=== PATIENT | male | born 1925 | race Caucasian/White ===

== ENCOUNTER 2016-10-03 00:18 | Emergency (ER) | payer MEDICARE ==
[2013-12-24 12:10] VITALS: BMI 19.0
[~2016-10-03 00:18] MED LIST: MOBIC7.5 MG PO; PAXIL10 MG; PAXIL10 MG PO
== END 2016-10-03 01:18 | disposition home or self-care (01) ==
LOC: D.ER 00:18
DX: H11.31 Conjunctival hemorrhage, right eye (principal); F03.90 Unspecified dementia, unspecified severity, without behavioral disturbance, psychotic disturbance, mood disturbance, and anxiety

== ENCOUNTER → 2017-02-09 11:18 | Outpatient (CLI) | payer MEDICARE ==
[2013-12-24 12:10] VITALS: BMI 19.0
== END | disposition home or self-care (01) ==
LOC: D.LAB 11:18
DX: Z12.5 Encounter for screening for malignant neoplasm of prostate (principal)

== ENCOUNTER → 2017-05-27 16:30 | Outpatient (CLI) | payer MEDICARE ==
[2013-12-24 12:10] VITALS: BMI 19.0
[~2017-05-27 16:30] MED LIST changes: +ACETAMINOPHEN500 M1 PO; +ASCORBIC ACID500 MG PO; +BAYER CHEWABLE81 MG PO; +BENADRYL25 MG PEG; +BROVANA15 MCG/2 M INH; +CALCIUM 600 +1 EAC3 PO; +DIFLUCAN100 MG PEG; +FERROUS SULFAT325 MG PO; +FLORANEX / LACT1 TAB PO; +GLUCOSAMINE & C1 CAP PO; +IPRAT-ALBUT 0.5-3 ML UPD; +KEPPRA250 MG PO; +LOPRESSOR I5 MG/5 ML IV; +LOVENOX40 MG/0.4 SC; +MIRALAX17 GM PO; +MULTI-DAY VITAM1 TAB PO; +NYSTATIN ORAL SU5 ML PO; +PEPCID20 MG PO; +PREDNISONE20 MG PEG; +PRILOSEC10 M1 PO; +PROSCAR5 MG PO; +PROTONIX FOR OR40 MG PO; +PROZAC10 MG PO; +PULMICORT0.5 MG/21 INH; +VITAMIN D31000 UNIT PO; +XOPENEX 0.0.63 MG/3 UPD; +ZOFRAN4 MG PO
== END | disposition home or self-care (01) ==
LOC: D.LABREF 16:30
DX: N39.0 Urinary tract infection, site not specified (principal)

== ENCOUNTER 2017-06-06 18:40 | Inpatient (IN) | payer MEDICARE ==
[~2017-06-06] VITALS: Ht 172.7 cm; Wt 58.2 kg
--- NOTE | ~2017-06-06 | HEMODYNAMI ---
PATIENT:SALINA BLAIR MEDICAL RECORD: [id number] : [birth year] [facility] D.[facility]3 ADMISSION DATE: 06/06/17 Generatedon:06/15/201711:19 Patient name: SALINA BLAIR Patient #: [id number] SSN: D OB: 1925 Date of study: 06/15/2017 Page: Of Hemodynamic Procedure Report Patient Data Patient Demographics Procedure consent was obtained First Name: SALINA Gender: Male Last Name: ROSSY : 1925 Middle Initial: F Age: 89 year(s) Patient #: [id number] Race: Unknown Additional ID: [id number] Contact details [address]: [address] [place] [address] rd State: [place] City: [place] Zip code: [address] Past Medical History Allergies Allergen Reaction Date Comments Reported Other allergy 06/15/2017 PCN, Sulfa Admission Admission Data Admission Date: 06/06/2017 Admission Time: 23:01 Admit Source: Other Room #: D.2303 Lab Results Lab Result Date: 06/15/2017 Lab Result Time: 4:05 Biochemistry Name Units Result Min Max BUN mg/dl 44 --(----)-* 7 18 Creatinine mg/dl 1.1 --(--*-)-- 0.6 1.3 CBC Name Units Result Min Max Hematocrit % 30.8 *-(----)-- 42 54 Hemoglobin g/dl 10.2 *-(----)-- 13.5 17.5 Procedure Procedure Types Cath Procedure Diagnostic Procedure Cardioversion External PADMAJA Procedure Description Procedure Date Procedure Date: 06/15/2017 Procedure Start Time: 10:40 Procedure End Time: 11:17 Procedure Staff Name Function Randolph Badillo MD Performing Physician Gera Nelson RT Monitor Fredis Gill RT Assembler Fluorescent Lights Vee Clay CRNA Additional personnel Francisco Lopez Giver Singh Stoner RN Nurse Procedure Data Cath Procedure Fluoroscopy Diagnostic fluoroscopy Total fluoroscopy Time: 0 time: 0 min min Diagnostic fluoroscopy Total fluoroscopy dose: 0 dose: 0 mGy mGy Contrast Material Contrast Material Type Amount (ml) Isovue 300 0 Estimated blood loss: 0 ml Procedure Complications No complications Procedure Medications Medication Administration Route Dosage Oxygen 13 l/min unlisted medication Refer to Anesthesia Notes for Sedation Medications Lopressor I.V. 5 mg Amiodarone Loading I.V. drip 150 mg Dose (150mg/100ml D5W) Amiodarone Loading I.V. drip 150 mg Dose (150mg/100ml D5W) Hemodynamics Rest HGB: 10.2 (g/dl) Heart Rate: 78 (bpm) Snapshots Pre Cath Intra NCS Post Cath Vital Signs Time Heart Resp SPO2 etCO2 NIBP (mmHg) Rhythm Pain Sedation Rate (ipm) (%) (mmHg) Status Level (bpm) 10:23:13 93 13 91 0 123/91(111) A-Fib 0 (11) 10(A) , No pain 10:27:21 121 14 93 0 121/88(98) A-Fib 0 (11) 10(A) , No pain 10:31:29 109 13 0 128/94(109) NSR 0 (11) 10(A) , No pain 10:35:41 112 11 95 0 134/85(100) NSR 0 (11) 10(A) , No pain 10:39:53 106 13 96 0 115/98(110) NSR 0 (11) 10(A) , No pain 10:44:52 108 17 84 0 Measuring NSR 0 (11) 10(A) , No pain 10:44:54 105 17 85 0 126/88(107) NSR 0 (11) 10(A) , No pain 10:49:14 90 16 91 0 106/68(85) NSR 0 (11) 10(A) , No pain 10:53:28 88 13 89 0 94/64(74) NSR 0 (11) 10(A) , No pain 10:57:38 88 16 88 0 91/63(76) NSR 0 (11) 10(A) , No pain 11:02:24 90 19 86 0 119/81(92) NSR 0 (11) 10(A) , No pain 11:06:34 92 13 89 0 115/79(96) NSR 0 (11) 10(A) , No pain 11:11:33 90 13 76 0 Measuring NSR 0 (11) 10(A) , No pain 11:11:35 94 13 83 0 122/75(92) NSR 0 (11) 10(A) , No pain 11:15:48 90 22 87 0 118/83(102) NSR 0 (11) 10(A) , No pain Medications Time Medication Route Dose Verified Delivered Reason Notes Effect iveness by by 10:27:58 Oxygen oxymizer 13 Randolph Randolph used for l/min Aby Badillo MD procedure MD 10:28:19 visc. po gargle Randolph Randolph Per lidocaine Aby Badillo MD physician MD 10:28:31 Refer to Randolph Randolph Anesthesia Aby Badillo MD Notes for MD Sedation Medications 10:50:47 Lopressor I.V. 5 mg Randolph Singh Per Aby Stoner RN physician 10:54:33 Amiodarone I.V. 150 mg Randolph Singh Per Loading Dose drip Aby Stoner RN physician (150mg/100ml D5W) 11:09:44 Amiodarone I.V. 150 mg Randolph Singh Per Loading Dose drip Aby Stoner RN physician (150mg/100ml D5W) Procedure Log Time Note 9:27:30 Informed consent obtained and on chart 9:27:33 Admit Source: Other 9:28:22 H&P Date Dictated: 06/14/2017 Within 30 days and on chart.. 9:29:02 Lab Result : BUN 44 mg/dl 9:29:02 Lab Result : Hemoglobin 10.2 g/dl 9:29:02 Lab Result : Creatinine 1.1 mg/dl 9:29:02 Lab Result : Hematocrit 30.8 % 10:00:10 Gera CANO(R) sent for patient. Start room use. 10:00:10 Time tracking: Regular hours 10:00:13 Plan of Care:Hemodynamics will remain stable., Cardiac rhythm will remain stable., Comfort level will be maintained., Respiratory function will remain adequate., Patient/ family verbilizes understanding of procedure., Procedure tolerated without complication., Recovers from procedure without complications.. 10:15:53 Patient arrived from ICU to CCL 3. Patient remains on bed/stretcher for procedure. 10:16:00 Warm blankets applied, and krystal hugger turned on for patient comfort. 10:16:01 Correct patient and procedure confirmed by team. 10:16:05 ECG and BP/O2 sat monitors applied to patient. 10:16:13 Quick Combo opened to sterile field. 10:16:17 Quick combo pads placed on patients chest and back. 10:21:54 Francisco Lopez Automotive Worker Foreman present for PADMAJA. 10:21:57 Vee Clay CRNA present and monitoring patient for TIVA. 10:22:09 Vital chart was started 10:22:12 Baseline sample Acquired. 10::25 Rhythm: atrial fibrillation 10::26 Full Disclosure recording started 10::28 Pre-procedure instructions explained to patient. 10::28 Pre-op teaching completed and patient verbalized understanding. 10:22:30 Family in patients room. 10:22:31 Patient NPO since Midnight. 10:23:05 Patient allergic to Other allergyPCN, Sulfa 10:23:09 Is the patient allergic to Iodine/contrast media? No. 10:27:58 Oxygen 13 l/min oxymizer was administered by Randolph Badillo MD; used for procedure; 10:28:19 visc. lidocaine gargle po was administered by Randolph Badillo MD; Per physician; 10:28:31 Refer to Anesthesia Notes for Sedation Medications was administered by Randolph Badillo MD; ; 10:30:33 Is patient on blood thinner?Yes 10:30:35 ACC The patient was administered the following blood thiners within the last 24 hours: ACCLovenox 10:30:38 Patient diabetic? No. 10:30:41 Previous problem with sedation/anesthesia? No ? 10:30:46 Snore? Unknown 10:30:47 Sleep apnea? No 10:30:49 Deviated septum? No 10:30:51 Opens mouth fully? Yes 10:30:52 Sticks out tongue? Yes 10:30:55 Airway obstruction? No ? 10:30:57 Dentures? No ? 10:31:57 IV patent on arrival in right forearm with 0.9% NaCl at [facility]. 10:31:59 Lab results completed and on chart. 10:32:29 Alarms reviewed by Tonay Nam 10:38:19 Physician arrived 10:38:19 --------ALL STOP TIME OUT------ 10:38:20 Final Timeout: patient, procedure, and site verified with staff and physician. All members of the team are in agreement. 10:38:25 Physical assessment completed. ASA score P 4 - A patient with severe systemic disease that is a constant threat to life as per Randolph Badillo MD. 10:38:29 Sedation plan: TIVA Medication:Propofol 10:40:36 Procedure started. 10:44:36 Un able to advance probe. PADMAJA was aborted. 10:45:57 Defibrillator synced and charged to 200 Joules. 10:46:12 Shock delivered. 10:50:02 Procedure ended.(Physican Out) 10:50:47 Lopressor 5 mg I.V. was administered by Singh Stoner RN; Per physician; 10:51:09 Patient cardioverted to sinus rhythm . 10:51:58 Fluoroscopy time 00.00 minutes. 10:52:00 Fluoroscopy dose: 0 mGy 10:52:00 Flurop Dose total: 0 10:52:02 Contrast amount:Isovue 300 0ml. 10:52:04 Sharps counted by scrub and verified by R.N. 10:52:14 Post-procedure physical assessment completed. ASA score P 4 - A patient with severe systemic disease that is a constant threat to life as per Randolph Badillo MD. 10:52:17 Post procedure rhythm: sinus rhythm 10:52:19 Estimated blood loss: 0 ml 10:52:28 Post procedure instruction explained to patient.Patient verbalizes understanding. 10:53:27 Procedure type changed to Cath procedure, Diagnostic procedure, Cardioversion External, PADMAJA 10:54:33 Amiodarone Loading Dose (150mg/100ml D5W) 150 mg I.V. drip was administered by Singh Stoner RN; Per physician; 10:54:37 Procedure and supply charges have been captured, reviewed, submitted and are correct. 10:54:39 Procedure Complication : No complications 11:09:44 Amiodarone Loading Dose (150mg/100ml D5W) 150 mg I.V. drip was administered by Singh Stoner RN; Per physician; 11:17:21 Vital chart was stopped 11:17:21 See physician's report for complete and final results. 11:17:23 Report given to ICU. 11:17:25 Patient transfered to ICU with Stretcher. 11:17:27 Procedure ended. 11:17:27 Full Disclosure recording stopped 11:17:33 End room use (Document Last) Device Usage Item Manufacture Quantity Catalog Hospital Part Current Minimal Lot# / Name Number Charge Number Stock Stock Qing peralta# Code [employer] 1 [id number] Combo Signature Audit [place] Stage Time Signature Unsigned Intra-Procedure 06/15/2017 Gera Nelson 11:18:58 AM RT(R) Signatures Monitor : Gera Nelson RT Signature : Date : Time : [address] [address]
--- NOTE | ~2017-06-06 | CN ---
PATIENT NAME:SALINA BLAIR MEDICAL RECORD: [id number] : [birth year] LOCATION:[facility].2303 ADMIT DATE: 06/06/17 ACCOUNT: [id number] CONSULTING PHYSICIAN: JENNY PEREZ MD REFERRING PHYSICIAN: ARTHUR SMALL MD DATE OF CONSULTATION: 06/07/2017 CONSULT REQUESTING PHYSICIAN: Arthur Small MD REASON FOR CONSULTATION: Hypotension, generalized weakness, and skin rash. HISTORY OF PRESENT ILLNESS: Mr. Blair is an 89-year-old gentleman who was admitted to the ER for hypotension, some shortness of breath, and skin rash. According to the patient, he was seen by urologist and possible UTI was diagnosed and the patient was started on Bactrim. The patient developed skin rash all over the body and it was getting worse. Also, when he came into the ER, the patient was hypotensive. Influenza flu test was negative. REVIEW OF SYSTEMS: As in history of present illness. PAST MEDICAL HISTORY: 1. Sick sinus syndrome, status post pacemaker placement. 2. Dementia. 3. Benign prostatic hypertrophy. 4. Iron deficiency anemia. 5. Irritable bowel syndrome. 6. History of lymphocytosis. 7. Gastroesophageal reflux disease. 8. Osteoarthritis. 9. Possible asthma. 10. History of compression fracture. PAST SURGICAL HISTORY: 1. He is status post pacemaker placement. 2. Hemorrhoidectomy. 3. DIRECTOR OF PLANNING shunt placement. 4. Cataract surgery and lens implant. 5. Bladder stone surgery. ALLERGIES: HE IS ALLERGIC TO PENICILLIN AND SULFA. MEDICATIONS: He is on Rocephin IV. His all other medication is reviewed. PERSONAL AND SOCIAL HISTORY: The patient is a nonsmoker, nondrinker. FAMILY HISTORY: Noncontributory. PHYSICAL EXAMINATION: GENERAL: Now, the patient is lying comfortably in bed. He is not in acute distress. VITAL SIGNS: The blood pressure is 108/59, pulse is 81, respiration is 18-25, temperature 98.1, and SPO2 is 93% on 2 liters nasal cannula. HEENT: Conjunctivae are pink. Sclerae not icteric. NECK: Supple, no JVD. CHEST: There is no wheeze, no rales. CONSULT REPORT [id number] SALINA BLAIR HEART: Rate and rhythm regular, normal sound. No murmur. ABDOMEN: Soft. Bowel sounds present. No hepatosplenomegaly. RECTAL: Deferred. EXTREMITIES: No cyanosis, no clubbing, no pedal edema. SKIN: Warm. There is red erythematous rash all over the body. LABORATORY DATA: CBC: The WBC is 19.6, hemoglobin 12, hematocrit is 35.2, the platelet count 129. Chemistry: Sodium 134, potassium 4.9, BUN is 53, creatinine 2.2, glucose 124. Urine is positive for trace protein and trace blood. IMPRESSION: 1. Systemic inflammatory response syndrome type of syndrome with hypotension and leukocytosis. 2. Hypotension. 3. Leukocytosis. 4. Skin rash secondary to drug reaction secondary to Bactrim. 5. Urinary tract infection. 6. Chronic kidney disease. RECOMMENDATION: 1. Continue Rocephin. 2. IV fluid resuscitation, the blood pressure is stable. He is off of the Levophed. Continue methylprednisolone IV. I will start him on Benadryl. Dr. Small, thank you for involving me in the care of Mr. Blair. TRANSINT:[id number] Voice Confirmation ID: [id number] DOCUMENT ID: [id number] JENNY PEREZ MD at 1410 CC: ARTHUR SMALL [id number] DICTATION DATE: 06/07/17 1233 CONTENT CHECKER: 06/07/17 1248 [place] [address]
--- NOTE | ~2017-06-06 | OP ---
PATIENT NAME: SALINA BLAIR MEDICAL RECORD: [id number] :[birth year] LOCATION:D.M2 D.2129 ADMISSION DATE:06/06/17 SURGEON: MYLES INMAN MD DATE OF OPERATION: 06/16/2017 PREOPERATIVE DIAGNOSES: 1. Aspiration pneumonia. 2. Failed swallowing evaluation. POSTOPERATIVE DIAGNOSES: 1. Aspiration pneumonia. 2. Failed swallowing evaluation. PROCEDURES: 1. Esophagogastroduodenoscopy with antral biopsies. 2. Percutaneous endoscopic gastrostomy tube placement, 20-Senegalese. SURGEON: Myles Inman MD ANTHROPOLOGY AND ARCHEOLOGY INSTRUCTOR: None. BLOOD LOSS: Minimal. ANESTHESIA: Please see the anesthesia sheet. COMPLICATIONS: None. The family insisted that the patient have this procedure performed in the operating room. OPERATIVE COURSE: The patient was conveyed to the operating room electively on 06/16/2017. Anesthesia was induced by the anesthesia staff. The abdomen was sterilely prepped and draped. A bite block was inserted. A gastroscope was inserted into the mouth. It was advanced easily into the hypopharynx. The esophagus was easily intubated as were the stomach and duodenum. Upon withdrawal, retroflexed and angulus views were obtained. Antral biopsies were obtained. I then was able to transilluminate the abdominal wall. I cleansed the anterior abdominal wall skin. I was able to instill local anesthetic into the subcutaneous tissues where I saw the light shine through the left upper quadrant. The skin incision was accomplished here. I advanced an Angiocath through the skin incision and punctured the stomach anteriorly on the first try. A guidewire was advanced through the Angiocath. This was grasped with an endoscopic snare. I then pulled the guide out through the mouth. This was attached to a pull type gastrostomy tube, which was then pulled into place. Hub and flange devices were attached. I then re-endoscoped the patient's esophagus and stomach. There has been no evidence of false passage or perforation. The endoscope was then withdrawn under direct vision. I will plan to start the patient's tube feedings tomorrow. OPERATIVE REPORT [id number] SALINA BLAIR TRANSINT:[id number] Voice Confirmation ID: [id number] DOCUMENT ID: [id number] MYLES INMAN MD at 115 CC: [id number] DICTATION DATE: 06/19/17 174 TAG MACHINE OPERATOR: 06/19/17 2329 DIS IN 06/28/17 [place] [id number] [place] [id number]
--- NOTE | ~2017-06-06 | EC ---
PATIENT:SALINA BLAIR DATE OF SERVICE: 06/06/17 SEX: M MEDICAL RECORD: [id number] DATE OF : [birth year] LOCATION:[facility] D230 AGE OF PATIENT: 89 ADMISSION DATE: 06/06/17 REFERRING PHYSICIAN: INTERPRETING PHYSICIAN: ASMITA BRIGGS MD ECHOCARDIOGRAM REPORT ECHO CHARGES 4 ECHO COMPLETE Date: 06/08 CLINICAL DIAGNOSIS: A-FIB/FLUTTER ECHOCARDIOGRAPHIC MEASUREMENTS (adult normal given) AC root (d.<3.7cm) 3.0 cm LV Septum d (<1.2 cm> 0.9 cm Valve Excursion 1.9 cm LV Septum (systole) 1.5 cm Left Atria (s.<4.0cm> 3.9 cm LVPW d(<1.2cm) 1.1 cm RV (d.<2.3cm) 2.7 cm LVPW (sytole) 1.6 cm LV diastole(<5.6CM) 4.5 cm MV E-F(>70mm/sec) cm LV systole 2.7 cm LVOT Diameter 1.7 cm MV exc.(>10mm) cm Est.ejection fraction (50-75%) % DOPPLER: LVIT cm/sec A cm/sec E 110 cm/sec LA cm/sec RVSP 46.0 mmHg LVOT 132 cm/sec AOP1/2T m/s Asc. Ao 142 cm/sec RVOT 58.0 cm/sec RA cm/sec PA 102 cm/sec AV Gradient Peak 8.1 mmHg AV Mean 4.1 mmHg AV Area 1.9 cm MV Gradient Peak 5.6 mmHg MV Mean 2.2 mmHg MV Area cm COMMENTS: Research Fellow: Micha FANOE Stock Pitcher: Russ Briggs TAPE# PACS Pericardial Effusion Y DATE OF SERVICE: PROCEDURE: Transthoracic echocardiogram. FINDINGS: 1. The left ventricle shows anterior septal hypokinesis. The proximal septum is akinetic. The overall ejection fraction is 30%. Inflow characteristics were nondiagnostic because of atrial flutter and atrial fibrillation. 2. The left atrium is normal size, normal function. 3. The mitral valve is not well visualized, but grossly normal. There is some ECHOCARDIOGRAM REPORT [id number] SALINA BLAIR mild mitral regurgitation. 4. The aortic valve is trileaflet and otherwise normal. 5. The right ventricle is mildly dilated. 6. The tricuspid valve is normal structurally, but has moderate tricuspid regurgitation. RVSP of 46 mmHg. 7. There is a mild pericardial effusion without tamponade physiology. 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 No evidence of atrial dysrhythmia. TRANSINT:[id number] Voice Confirmation ID: [id number] DOCUMENT ID: [id number] ASMITA BRIGGS MD at 0756 CC: [id number] DICTATION DATE: 06/09/17 1011 SAP GATHERER: 06/09/17 1101 ADM IN [facility] [address] [place] [address]
--- NOTE | ~2017-06-06 | HP ---
PATIENT: SALINA BLAIR MEDICAL RECORD: [id number] ACCOUNT: [id number] LOCATION:[facility] : [birth year] ADMISSION DATE: 06/06/17 HISTORY AND PHYSICAL EXAMINATION CHIEF COMPLAINT: Weakness, hypotension, and rashes. HISTORY OF PRESENT ILLNESS: The patient is an 89-year-old male with past history of sick sinus syndrome and normal pressure hydrocephalus. He has apparently seen his urologist earlier this week for UTI and BPH symptoms. He was placed on Bactrim and within several doses developed a diffuse pruritic red rash on his abdomen extending to his legs (the patient has history of Bactrim allergy). It became worse over the last few days, felt more fatigued and lightheaded getting out of bed. For this reason, he came to the Emergency Room. He was hypotensive in the ER initially, was considered possibly septic. Influenza test was obtained that was negative, but was reported to the staff of being positive. For that reason, he was given fluid challenge and placed in the ICU. He is somewhat confused this morning. He does mention some fever, but no cough, abdominal pain, but chronic trouble with nocturia. 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 PAST SURGICAL HISTORY: OR ASSISTANT shunt placement, hemorrhoidectomy, and cataract lens inserted OU. He has had a bladder stone removed and OR ASSISTANT shunt placement. FAMILY HISTORY: Mother had heart disease. SOCIAL HISTORY: He has never smoked or used alcohol. He is and lives at home with his , is fairly functional. Possible history of sick sinus syndrome and pacemaker placement. MEDICATIONS: Recently Bactrim-DS 1 p.o. b.i.d., meloxicam 7.5 mg p.o. daily, famotidine 20 mg at bedtime, Atrovent nasal spray 1 squirt each nostril b.i.d., Prozac 10 mg a day, finasteride 5 mg a day, levetiracetam 250 mg p.o. b.i.d. ALLERGIES: PENICILLIN AND BACTRIM. REVIEW OF SYSTEMS: CONSTITUTIONAL: He has been fatigued with low-grade fever for the last 48 hours. He was somewhat confused. HEENT: No new visual change, sinus congestion. He does complain of sore throat. RESPIRATORY: No SOB or cough. CARDIAC: No chest pain, palpitations or edema. GASTROINTESTINAL: He has had some nausea without vomiting. No diarrhea. ENDOCRINE: Denies polyuria, polydipsia, heat or cold intolerance. INTEGUMENT: Diffuse rash that is pruritic on his abdomen, arms and legs that developed after several doses of Bactrim. GENITOURINARY: He has trouble nocturia 2-3 times nightly with decreased voiding stream. NEUROLOGIC: Denies history of stroke, but has had history of seizures that have HISTORY AND PHYSICAL [id number] SALINA BLAIR been well controlled. History of normal pressure hydrocephalus causing mild gait disturbance. 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 PHYSICAL EXAMINATION: VITAL SIGNS: Temperature 102.5, pulse 107 and regular, respirations are 18, blood pressure 130/77, dropped to 90/60. HEENT: Normocephalic. Eyes are clear with lens implants. Sclerae nonicteric. Throat shows mild erythema posteriorly. No exudates, uvula or tongue edema. NECK: Supple. CHEST: Distant breath sounds without wheeze. HEART: Tachycardic without murmur. ABDOMEN: Soft, nontender. GENITOURINARY: Unremarkable. Prostate examination is deferred. EXTREMITIES: No CC&E. INTEGUMENT: He has diffuse macular red rash on his abdomen, upper back, buttocks, thighs, neck and face. It spares the palms and soles. LABORATORY DATA: Shows white count 19,600, H&H of 12 and 35.2, platelet count 129,000, left shift with 83% polys. Chemistry: Sodium is low at 134, BUN and creatinine are 53 and 2.2, calcium 7.2. Troponin is 0.081 without cyclical increase. ASSESSMENT: 1. Acute sulfonamide reaction with possible serum sickness. 2. Acute renal insufficiency with hypotension. 3. Normal pressure hydrocephalus. 4. Sick sinus syndrome with pacemaker. 5. Osteoarthritis. 6. Lumbar compression fractures. 7. Thoracic compression fractures 8. Mild dementia. 9. History of seizure disorder. PLAN: Resume home medications except sulfonamide. We will hydrate, monitor BUN and creatinine closely. Give IV steroids for his cutaneous drug reaction. We will discuss with his , she is not in the ICU currently. TRANSINT:[id number] Voice Confirmation ID: [id number] DOCUMENT ID: [id number] DARLENE SCHAFFER MD at 1752 CC: [id number] DICTATION DATE: 06/07/17 08 GORE MAKER: 06/07/17 0832 ADM IN [place] [id number] [place] [id number]
--- NOTE | ~2017-06-06 | CN ---
PATIENT NAME:SALINA BLAIR MEDICAL RECORD: [id number] : [birth year] LOCATION:D. D.2129 ADMIT DATE: 06/06/17 ACCOUNT: [id number] CONSULTING PHYSICIAN: DANICA INMAN MD REFERRING PHYSICIAN: DARLENE SCHAFFER MD DATE OF CONSULTATION: 06/15/2017 ADDENDUM CHIEF COMPLAINT: Aspiration pneumonia. HISTORY OF PRESENT ILLNESS: The patient has aspiration pneumonia. He has failed a swallowing evaluation. I have been asked to place a feeding tube. The patient has a scar in the left upper quadrant, but he cannot tell me what operation occurred there. The risks, possible complications, and alternatives to the procedure were explained to the patient. He elects to proceed. This is a consultation note addendum. Nothing aggravates. Nothing alleviates. Symptoms are difficult to characterize. For the typed portion of the consult note, please see the chart. This would include the past medical and surgical history, current medications, allergies, social history as well as family history. REVIEW OF SYSTEMS: Currently without nausea or vomiting. Positive for shortness of breath. Positive for orthopnea. No chest pain. Review of systems is negative other than as is described above. PHYSICAL EXAMINATION: GENERAL: The patient appears acutely ill. Also appears chronically ill. VITAL SIGNS: Reviewed. HEAD: External ears appear normal. EYES: Extraocular movements are intact. NECK: Trachea is midline. CHEST: There are intercostal retractions. Rhonchi bilaterally. PULMONARY: Decreased breath sounds at the bases. ABDOMEN: Nontender. INTEGUMENT: There is an intertriginous rash. BACK: Mild thoracic kyphosis is noted. LYMPHATICS: No lymphangitic streaking of the exposed extremities. PSYCHIATRIC: Anxious affect. NEUROLOGIC: Abnormal. There is some evidence of loss of higher cortical function. IMPRESSION: 1. Failed swallowing evaluation. 2. Aspiration pneumonia. PLAN: EGD with percutaneous endoscopic gastrostomy tube placement. TRANSINT:[id number] Voice Confirmation ID: [id number] DOCUMENT ID: [id number] CONSULT REPORT [id number] ROSSYSALINADANICA LLAMAS MD at 1158 CC: [id number] DICTATION DATE: 06/19/17 174 MOUNTER SOUSAPHONES: 06/19/17 2317 DIS IN 06/28/17 [place] [id number] [place] [address]
[~2017-06-06 18:40] MED LIST changes: -ACETAMINOPHEN500 M1 PO; -ASCORBIC ACID500 MG PO; -BAYER CHEWABLE81 MG PO; -BENADRYL25 MG PEG; -BROVANA15 MCG/2 M INH; -CALCIUM 600 +1 EAC3 PO; -DIFLUCAN100 MG PEG; -FERROUS SULFAT325 MG PO; -FLORANEX / LACT1 TAB PO; -GLUCOSAMINE & C1 CAP PO; -IPRAT-ALBUT 0.5-3 ML UPD; -KEPPRA250 MG PO; -LOPRESSOR I5 MG/5 ML IV; -LOVENOX40 MG/0.4 SC; -MIRALAX17 GM PO; -MULTI-DAY VITAM1 TAB PO; -NYSTATIN ORAL SU5 ML PO; -PEPCID20 MG PO; -PREDNISONE20 MG PEG; -PRILOSEC10 M1 PO; -PROSCAR5 MG PO; -PROTONIX FOR OR40 MG PO; -PROZAC10 MG PO; -PULMICORT0.5 MG/21 INH; -VITAMIN D31000 UNIT PO; -XOPENEX 0.0.63 MG/3 UPD; -ZOFRAN4 MG PO
[2017-06-06 19:38] LABS: BASOPHILS 0.2 % (0-2); EOSINOPHILS 1.2 % (0-7); HEMATOCRIT 35.2 % (42.0-54.0); IMMATURE GRANULOCYTES 1.6 % (0-5); LYMPHOCYTES 7.8 % (15-50); MCH 31.7 pg (26.0-34.0); MCHC 34.1 g/dL (31.0-37.0); MCV 93.1 fL (80.0-100.0); MEAN PLATELET VOLUME 10.8 fL (7.4-10.4); MONOCYTES 6.6 % (2-11); NEUTROPHILS 82.6 % (40-80); PLATELET COUNT 129 10x3/uL (130-400); RBC 3.78 10x6/uL (4.20-6.10); RDW 15.2 % (11.5-14.5); WBC 19.6 10x3/uL (4.8-10.8)
[2017-06-06 20:06] LABS: ALBUMIN 3.6 g/dL (3.4-5.0); ALKALINE PHOSPHATASE 98 U/L (46-116); ALT (SGPT) 47 U/L (10-68); BILIRUBIN - TOTAL 0.41 mg/dL (0.2-1.3); CALC OSMOLALITY 280 mosm/kg (275-300); CALCIUM 8.2 mg/dL (8.5-10.1); CARBON DIOXIDE 21.9 mmol/L (21.0-32.0); CHLORIDE - SERUM 98 mmol/L (98-107); CREATININE - SERUM 2.2 mg/dL (0.6-1.3); GLUCOSE 130 mg/dL (74-106); POTASSIUM - SERUM 5.3 mmol/L (3.5-5.1); PROTEIN - SERUM 6.3 g/dL (6.4-8.2); SODIUM 132 mmol/L (136-145); UREA NITROGEN 51 mg/dL (7-18); eGFR NON AFRICAN AMERICAN 30 mL/min (90-120)
[2017-06-06 20:34] LABS: CREATINE KINASE 965 UL (21-232); LIPASE 49 U/L (73-393); PRO BNP 5574 pg/mL (0-450)
[2017-06-06 20:35] LABS: TROPONIN-I 0.115 ng/mL (0.000-0.060)
[2017-06-06 22:55] LABS: APPEARANCE HAZY (CLEAR); BACTERIA FEW /hpf (NONE SEEN); BILIRUBIN NEGATIVE (NEGATIVE); COLOR YELLOW (YELLOW); GLUCOSE NEGATIVE (NEGATIVE); KETONE NEGATIVE (NEGATIVE); MUCUS <1+ /lpf (NONE SEEN); NITRITE NEGATIVE (NEGATIVE); PROTEIN TRACE mg/dL (NEGATIVE); UROBILINOGEN NORMAL (NORMAL); WHITE CELLS - URINE 0-5 /hpf (0-5)
[2017-06-07] VITALS (24 sets, daily range): BP systolic 72–134; BP diastolic 34–84; BMI 18.6; BMI 18.5
[2017-06-07 05:15] LABS: BASOPHILS 0.1 % (0-2); EOSINOPHILS 0.6 % (0-7); HEMATOCRIT 29.1 % (42.0-54.0); IMMATURE GRANULOCYTES 1.1 % (0-5); LYMPHOCYTES 8.1 % (15-50); MCH 31.5 pg (26.0-34.0); MCHC 34.4 g/dL (31.0-37.0); MCV 91.8 fL (80.0-100.0); MEAN PLATELET VOLUME 9.9 fL (7.4-10.4); MONOCYTES 5.6 % (2-11); NEUTROPHILS 84.5 % (40-80); PLATELET COUNT 108 10x3/uL (130-400); RBC 3.17 10x6/uL (4.20-6.10); WBC 15.9 10x3/uL (4.8-10.8)
[2017-06-07 05:52] LABS: BILIRUBIN - TOTAL 0.3 mg/dL (0.2-1.3); CALCIUM 7.2 mg/dL (8.5-10.1); CARBON DIOXIDE 20.9 mmol/L (21.0-32.0); CREATININE - SERUM 2.2 mg/dL (0.6-1.3); POTASSIUM - SERUM 4.9 mmol/L (3.5-5.1)
[2017-06-07 05:56] LABS: ALBUMIN 2.6 g/dL (3.4-5.0); PROTEIN - SERUM 4.6 g/dL (6.4-8.2); TROPONIN-I 0.082 ng/mL (0.000-0.060)
[2017-06-08] VITALS (10 sets, daily range): BP systolic 92–138; BP diastolic 56–95; Ht 172.7 cm; Wt 58.2 kg
[2017-06-08 05:11] LABS: BASOPHILS 0.4 % (0-2); EOSINOPHILS 1.1 % (0-7); IMMATURE GRANULOCYTES 0.5 % (0-5); LYMPHOCYTES 14.9 % (15-50); MCH 31.8 pg (26.0-34.0); MCHC 34.4 g/dL (31.0-37.0); MCV 92.3 fL (80.0-100.0); MEAN PLATELET VOLUME 11.6 fL (7.4-10.4); MONOCYTES 13.5 % (2-11); NEUTROPHILS 69.6 % (40-80); RDW 15.4 % (11.5-14.5)
[2017-06-08 05:14] LABS: HEMATOCRIT 37.2 % (42.0-54.0); HEMOGLOBIN 12.8 g/dL (13.5-17.5); PLATELET COUNT 144 10x3/uL (130-400); RBC 4.03 10x6/uL (4.20-6.10); WBC 8.1 10x3/uL (4.8-10.8)
[2017-06-08 05:26] LABS: ANION GAP 15.7 mmol/L (8-16); CARBON DIOXIDE 18.8 mmol/L (21.0-32.0); POTASSIUM - SERUM 4.5 mmol/L (3.5-5.1)
[2017-06-08 05:31] LABS: CREATININE - SERUM 1.5 mg/dL (0.6-1.3)
[2017-06-08 06:18] LABS: T4 THYROXIN - FREE 0.85 ng/dL (0.76-1.46); THYROID STIMULATING HORMONE 0.98 uIU/mL (0.36-3.74)
[2017-06-09] VITALS (24 sets, daily range): BP systolic 92–140; BP diastolic 58–104
[2017-06-09 04:31] LABS: EOSINOPHILS 0.2 % (0-7); HEMOGLOBIN 12.4 g/dL (13.5-17.5); IMMATURE GRANULOCYTES 0.4 % (0-5); LYMPHOCYTES 15.5 % (15-50); MCH 31.7 pg (26.0-34.0); MCHC 34.4 g/dL (31.0-37.0); MCV 92.1 fL (80.0-100.0); MEAN PLATELET VOLUME 11.4 fL (7.4-10.4); MONOCYTES 14.5 % (2-11); NEUTROPHILS 68.4 % (40-80); RBC 3.91 10x6/uL (4.20-6.10); RDW 15.3 % (11.5-14.5)
[2017-06-09 04:46] LABS: PLATELET COUNT 109 10x3/uL (130-400); WBC 10.5 10x3/uL (4.8-10.8)
[2017-06-09 04:52] LABS: CARBON DIOXIDE 19.2 mmol/L (21.0-32.0); CREATININE - SERUM 1.7 mg/dL (0.6-1.3); POTASSIUM - SERUM 4.2 mmol/L (3.5-5.1)
[2017-06-09 05:18] LABS: CALCIUM 6.8 mg/dL (8.5-10.1)
[2017-06-09] MEDS ORDERED: PROZAC10 MG PO (12:44)
[2017-06-09] MEDS ORDERED: PROSCAR5 MG PO (12:45)
[2017-06-09] MEDS ORDERED: BAYER CHEWABLE81 MG PO (12:45)
[2017-06-09] MEDS ORDERED: PRILOSEC10 M1 PO (12:45)
[2017-06-09] MEDS ORDERED: KEPPRA250 MG PO (12:45)
[2017-06-09] MEDS ORDERED: FERROUS SULFAT325 MG PO (12:46)
[2017-06-09] MEDS ORDERED: CALCIUM 600 +1 EAC3 PO (12:46)
[2017-06-09] MEDS ORDERED: ASCORBIC ACID500 MG PO (12:47)
[2017-06-09] MEDS ORDERED: MULTI-DAY VITAM1 TAB PO (12:47)
[2017-06-09] MEDS ORDERED: VITAMIN D31000 UNIT PO (12:47)
[2017-06-09] MEDS ORDERED: PEPCID20 MG PO (12:48)
[2017-06-09] MEDS ORDERED: GLUCOSAMINE & C1 CAP PO (12:48)
[2017-06-10] VITALS (24 sets, daily range): BP systolic 94–131; BP diastolic 60–111
[2017-06-10 03:54] LABS: BASOPHILS 2.5 % (0-2); EOSINOPHILS 0.1 % (0-7); HEMATOCRIT 35.7 % (42.0-54.0); HEMOGLOBIN 12.4 g/dL (13.5-17.5); IMMATURE GRANULOCYTES 0.6 % (0-5); LYMPHOCYTES 23.6 % (15-50); MCH 31.8 pg (26.0-34.0); MCHC 34.7 g/dL (31.0-37.0); MCV 91.5 fL (80.0-100.0); MONOCYTES 15.1 % (2-11); NEUTROPHILS 58.1 % (40-80); PLATELET COUNT 104 10x3/uL (130-400); RDW 15.4 % (11.5-14.5)
[2017-06-10 03:55] LABS: WBC 16.1 10x3/uL (4.8-10.8)
[2017-06-10 04:05] LABS: ANION GAP 19.1 mmol/L (8-16); CALCIUM 7.5 mg/dL (8.5-10.1); CARBON DIOXIDE 20.4 mmol/L (21.0-32.0); POTASSIUM - SERUM 4.5 mmol/L (3.5-5.1)
[2017-06-11] VITALS (24 sets, daily range): BP systolic 102–129; BP diastolic 63–92
[2017-06-11 04:09] LABS: BASOPHILS 2.5 % (0-2); EOSINOPHILS 0.1 % (0-7); HEMATOCRIT 35.3 % (42.0-54.0); HEMOGLOBIN 12.2 g/dL (13.5-17.5); IMMATURE GRANULOCYTES 0.8 % (0-5); LYMPHOCYTES 33.6 % (15-50); MCH 32.1 pg (26.0-34.0); MCHC 34.6 g/dL (31.0-37.0); MCV 92.9 fL (80.0-100.0); MEAN PLATELET VOLUME 13.6 fL (7.4-10.4); MONOCYTES 13.7 % (2-11); NEUTROPHILS 49.3 % (40-80); PLATELET COUNT 113 10x3/uL (130-400); WBC 15.6 10x3/uL (4.8-10.8)
[2017-06-11 04:25] LABS: ALBUMIN 2.3 g/dL (3.4-5.0); ANION GAP 19.1 mmol/L (8-16); BILIRUBIN - TOTAL 0.48 mg/dL (0.2-1.3); CALCIUM 7.5 mg/dL (8.5-10.1); CARBON DIOXIDE 17.6 mmol/L (21.0-32.0); MAGNESIUM - SERUM 2.9 mg/dL (1.8-2.4); POTASSIUM - SERUM 4.7 mmol/L (3.5-5.1); PROTEIN - SERUM 4.9 g/dL (6.4-8.2)
[2017-06-12] VITALS (24 sets, daily range): BP systolic 100–145; BP diastolic 69–97
[2017-06-12 03:50] LABS: BASOPHILS 0.6 % (0-2); EOSINOPHILS 0.1 % (0-7); HEMATOCRIT 32.9 % (42.0-54.0); HEMOGLOBIN 11.3 g/dL (13.5-17.5); IMMATURE GRANULOCYTES 1.1 % (0-5); LYMPHOCYTES 34.6 % (15-50); MCH 31.5 pg (26.0-34.0); MCHC 34.3 g/dL (31.0-37.0); MCV 91.6 fL (80.0-100.0); MEAN PLATELET VOLUME 12.9 fL (7.4-10.4); MONOCYTES 9.5 % (2-11); NEUTROPHILS 54.1 % (40-80); PLATELET COUNT 127 10x3/uL (130-400); RBC 3.59 10x6/uL (4.20-6.10); RDW 15.6 % (11.5-14.5)
[2017-06-12 04:01] LABS: ALBUMIN 2.2 g/dL (3.4-5.0); ANION GAP 17.7 mmol/L (8-16); BILIRUBIN - TOTAL 0.47 mg/dL (0.2-1.3); CALCIUM 7.5 mg/dL (8.5-10.1); CARBON DIOXIDE 20.8 mmol/L (21.0-32.0); CREATININE - SERUM 1.8 mg/dL (0.6-1.3); MAGNESIUM - SERUM 2.8 mg/dL (1.8-2.4); POTASSIUM - SERUM 4.5 mmol/L (3.5-5.1); PROTEIN - SERUM 4.7 g/dL (6.4-8.2)
[2017-06-13] VITALS (24 sets, daily range): BP systolic 100–142; BP diastolic 81–113
[2017-06-13 03:59] LABS: BASOPHILS 0.2 % (0-2); EOSINOPHILS 0 % (0-7); HEMATOCRIT 33.3 % (42.0-54.0); HEMOGLOBIN 11.4 g/dL (13.5-17.5); IMMATURE GRANULOCYTES 0.9 % (0-5); LYMPHOCYTES 34.8 % (15-50); MCH 31.3 pg (26.0-34.0); MCHC 34.2 g/dL (31.0-37.0); MCV 91.5 fL (80.0-100.0); MEAN PLATELET VOLUME 12.6 fL (7.4-10.4); NEUTROPHILS 57.1 % (40-80); PLATELET COUNT 132 10x3/uL (130-400); RBC 3.64 10x6/uL (4.20-6.10); RDW 15.9 % (11.5-14.5)
[2017-06-13 04:22] LABS: ALBUMIN 2.4 g/dL (3.4-5.0); BILIRUBIN - TOTAL 0.7 mg/dL (0.2-1.3); CALCIUM 7.8 mg/dL (8.5-10.1); CARBON DIOXIDE 22.3 mmol/L (21.0-32.0); CREATININE - SERUM 1.5 mg/dL (0.6-1.3); MAGNESIUM - SERUM 2.8 mg/dL (1.8-2.4); PHOSPHOROUS 2.1 mg/dL (2.5-4.9); POTASSIUM - SERUM 4.6 mmol/L (3.5-5.1); PROTEIN - SERUM 4.9 g/dL (6.4-8.2)
[2017-06-13 04:35] LABS: ANION GAP 15.3 mmol/L (8-16)
[2017-06-14] VITALS (24 sets, daily range): BP systolic 100–139; BP diastolic 75–104
[2017-06-14 04:40] LABS: BASOPHILS 0.1 % (0-2); EOSINOPHILS 0 % (0-7); HEMATOCRIT 30.9 % (42.0-54.0); HEMOGLOBIN 10.5 g/dL (13.5-17.5); IMMATURE GRANULOCYTES 0.6 % (0-5); LYMPHOCYTES 26.2 % (15-50); MCH 31.5 pg (26.0-34.0); MCV 92.8 fL (80.0-100.0); MEAN PLATELET VOLUME 12.3 fL (7.4-10.4); MONOCYTES 8.1 % (2-11); PLATELET COUNT 126 10x3/uL (130-400); RBC 3.33 10x6/uL (4.20-6.10); RDW 15.8 % (11.5-14.5); WBC 14.9 10x3/uL (4.8-10.8)
[2017-06-14 05:23] LABS: ALBUMIN 2.2 g/dL (3.4-5.0); ANION GAP 11.6 mmol/L (8-16); BILIRUBIN - TOTAL 0.7 mg/dL (0.2-1.3); CALCIUM 7.4 mg/dL (8.5-10.1); CARBON DIOXIDE 26.4 mmol/L (21.0-32.0); CREATININE - SERUM 1.2 mg/dL (0.6-1.3); MAGNESIUM - SERUM 2.4 mg/dL (1.8-2.4); PROTEIN - SERUM 4.4 g/dL (6.4-8.2)
[2017-06-15] VITALS (24 sets, daily range): BP systolic 117–144; BP diastolic 67–97
[2017-06-15 04:51] LABS: BASOPHILS 0.1 % (0-2); EOSINOPHILS 0.1 % (0-7); HEMATOCRIT 30.8 % (42.0-54.0); HEMOGLOBIN 10.2 g/dL (13.5-17.5); IMMATURE GRANULOCYTES 0.7 % (0-5); LYMPHOCYTES 21.5 % (15-50); MCH 31.4 pg (26.0-34.0); MCHC 33.1 g/dL (31.0-37.0); MEAN PLATELET VOLUME 12.5 fL (7.4-10.4); NEUTROPHILS 69.6 % (40-80); PLATELET COUNT 111 10x3/uL (130-400); RBC 3.25 10x6/uL (4.20-6.10); RDW 15.9 % (11.5-14.5); WBC 16.1 10x3/uL (4.8-10.8)
[2017-06-15 04:54] LABS: MCV 94.8 fL (80.0-100.0)
[2017-06-15 05:05] LABS: ALBUMIN 2.1 g/dL (3.4-5.0); ANION GAP 9.8 mmol/L (8-16); BILIRUBIN - TOTAL 0.77 mg/dL (0.2-1.3); CALCIUM 7.1 mg/dL (8.5-10.1); CREATININE - SERUM 1.1 mg/dL (0.6-1.3); MAGNESIUM - SERUM 2.4 mg/dL (1.8-2.4); POTASSIUM - SERUM 3.8 mmol/L (3.5-5.1); PROTEIN - SERUM 4.2 g/dL (6.4-8.2)
[2017-06-16] VITALS (22 sets, daily range): BP systolic 112–144; BP diastolic 63–98
[2017-06-16 06:09] LABS: BASOPHILS 0 % (0-2); EOSINOPHILS 0 % (0-7); HEMATOCRIT 30.7 % (42.0-54.0); HEMOGLOBIN 10.3 g/dL (13.5-17.5); IMMATURE GRANULOCYTES 0.2 % (0-5); MCH 31.4 pg (26.0-34.0); MCHC 33.6 g/dL (31.0-37.0); MCV 93.6 fL (80.0-100.0); MEAN PLATELET VOLUME 12.7 fL (7.4-10.4); MONOCYTES 5.1 % (2-11); NEUTROPHILS 79.7 % (40-80); PLATELET COUNT 90 10x3/uL (130-400); RBC 3.28 10x6/uL (4.20-6.10); RDW 15.7 % (11.5-14.5)
[2017-06-16 06:11] LABS: WBC 9.8 10x3/uL (4.8-10.8)
[2017-06-16 06:15] LABS: ALKALINE PHOSPHATASE 90 U/L (46-116); ALT (SGPT) 52 U/L (10-68); CALC OSMOLALITY 304 mosm/kg (275-300); CALCIUM 7.2 mg/dL (8.5-10.1); CARBON DIOXIDE 28.4 mmol/L (21.0-32.0); CHLORIDE - SERUM 111 mmol/L (98-107); POTASSIUM - SERUM 4.1 mmol/L (3.5-5.1); SODIUM 146 mmol/L (136-145); UREA NITROGEN 44 mg/dL (7-18); eGFR NON AFRICAN AMERICAN 75 mL/min (90-120)
[2017-06-16 06:19] LABS: GLUCOSE 153 mg/dL (74-106)
[2017-06-16 07:34] LABS: PLATELET ESTIMATE DECREASED
[2017-06-17] VITALS (24 sets, daily range): BP systolic 102–139; BP diastolic 61–86
[2017-06-17 04:25] LABS: BASOPHILS 0 % (0-2); EOSINOPHILS 0 % (0-7); HEMATOCRIT 31.2 % (42.0-54.0); HEMOGLOBIN 10.5 g/dL (13.5-17.5); IMMATURE GRANULOCYTES 0.4 % (0-5); LYMPHOCYTES 10.1 % (15-50); MCH 31.5 pg (26.0-34.0); MCHC 33.7 g/dL (31.0-37.0); MCV 93.7 fL (80.0-100.0); MEAN PLATELET VOLUME 12.6 fL (7.4-10.4); MONOCYTES 4.9 % (2-11); NEUTROPHILS 84.6 % (40-80); PLATELET COUNT 84 10x3/uL (130-400); RBC 3.33 10x6/uL (4.20-6.10); RDW 15.7 % (11.5-14.5); WBC 11.1 10x3/uL (4.8-10.8)
[2017-06-17 04:32] LABS: PLATELET ESTIMATE DECREASED
[2017-06-17 04:54] LABS: ALBUMIN 2.1 g/dL (3.4-5.0); ALKALINE PHOSPHATASE 96 U/L (46-116); ALT (SGPT) 51 U/L (10-68); CALC OSMOLALITY 302 mosm/kg (275-300); CALCIUM 7.3 mg/dL (8.5-10.1); CHLORIDE - SERUM 112 mmol/L (98-107); GLUCOSE 128 mg/dL (74-106); LDH 569 U/L (85-227); MAGNESIUM - SERUM 2.2 mg/dL (1.8-2.4); PHOSPHOROUS 3.5 mg/dL (2.5-4.9); POTASSIUM - SERUM 3.9 mmol/L (3.5-5.1); PRE-ALBUMIN 24.3 mg/dL (18.0-35.7); PROTEIN - SERUM 4.2 g/dL (6.4-8.2); SODIUM 145 mmol/L (136-145); UREA NITROGEN 45 mg/dL (7-18); eGFR NON AFRICAN AMERICAN 75 mL/min (90-120)
[2017-06-17 05:13] LABS: INR 1.14 (0.85-1.17); PROTIME 14.2 SECONDS (11.6-15.0)
[2017-06-17 05:15] LABS: APTT 30.5 SECONDS (22.8-39.4)
[2017-06-17 05:16] LABS: D-DIMER-QUANTITATIVE 1.01 ug/mLFEU (0.20-0.54)
[2017-06-18] VITALS (14 sets, daily range): BP systolic 118–144; BP diastolic 59–87
[2017-06-18 04:58] LABS: BASOPHILS 0 % (0-2); EOSINOPHILS 0 % (0-7); HEMATOCRIT 31.7 % (42.0-54.0); HEMOGLOBIN 10.7 g/dL (13.5-17.5); IMMATURE GRANULOCYTES 0.2 % (0-5); LYMPHOCYTES 7.3 % (15-50); MCH 31.8 pg (26.0-34.0); MCHC 33.8 g/dL (31.0-37.0); MCV 94.1 fL (80.0-100.0); MONOCYTES 4.9 % (2-11); NEUTROPHILS 87.6 % (40-80); PLATELET COUNT 82 10x3/uL (130-400); RBC 3.37 10x6/uL (4.20-6.10); RDW 15.7 % (11.5-14.5); WBC 13.1 10x3/uL (4.8-10.8)
[2017-06-18 05:10] LABS: CALC OSMOLALITY 292 mosm/kg (275-300); CALCIUM 7.5 mg/dL (8.5-10.1); CARBON DIOXIDE 25.1 mmol/L (21.0-32.0); CHLORIDE - SERUM 107 mmol/L (98-107); GLUCOSE 166 mg/dL (74-106); MAGNESIUM - SERUM 2.1 mg/dL (1.8-2.4); POTASSIUM - SERUM 3.8 mmol/L (3.5-5.1); SODIUM 139 mmol/L (136-145); UREA NITROGEN 43 mg/dL (7-18); eGFR NON AFRICAN AMERICAN 75 mL/min (90-120)
[2017-06-19] VITALS: BP 126/68
[2017-06-19 04:00] VITALS: BP 126/69
[2017-06-19 07:34] LABS: BASOPHILS 0 % (0-2); EOSINOPHILS 0 % (0-7); HEMATOCRIT 29.9 % (42.0-54.0); IMMATURE GRANULOCYTES 0.2 % (0-5); LYMPHOCYTES 7.9 % (15-50); MCH 31.5 pg (26.0-34.0); MCHC 33.4 g/dL (31.0-37.0); MCV 94.3 fL (80.0-100.0); MEAN PLATELET VOLUME 13.1 fL (7.4-10.4); MONOCYTES 5.9 % (2-11); PLATELET COUNT 71 10x3/uL (130-400); RBC 3.17 10x6/uL (4.20-6.10); RDW 15.8 % (11.5-14.5); WBC 9.7 10x3/uL (4.8-10.8)
[2017-06-19 08:22] LABS: CALC OSMOLALITY 282 mosm/kg (275-300); CALCIUM 7.4 mg/dL (8.5-10.1); CARBON DIOXIDE 26.6 mmol/L (21.0-32.0); CHLORIDE - SERUM 106 mmol/L (98-107); CREATININE - SERUM 0.7 mg/dL (0.6-1.3); GLUCOSE 132 mg/dL (74-106); MAGNESIUM - SERUM 1.9 mg/dL (1.8-2.4); POTASSIUM - SERUM 4.1 mmol/L (3.5-5.1); SODIUM 137 mmol/L (136-145); UREA NITROGEN 32 mg/dL (7-18); eGFR NON AFRICAN AMERICAN > 90 mL/min (90-120)
[2017-06-19 09:53] VITALS: BP 129/80
[2017-06-19 12:49] VITALS: BP 116/71
[2017-06-19 16:30] VITALS: BP 105/61
[2017-06-19 20:00] VITALS: BP 104/59
[2017-06-20] VITALS: BP 108/57
[2017-06-20 04:00] VITALS: BP 97/49
[2017-06-20 06:09] LABS: BASOPHILS 0 % (0-2); EOSINOPHILS 0 % (0-7); HEMOGLOBIN 9.6 g/dL (13.5-17.5); IMMATURE GRANULOCYTES 0.2 % (0-5); LYMPHOCYTES 8.2 % (15-50); MCH 31.4 pg (26.0-34.0); MCHC 33.1 g/dL (31.0-37.0); MCV 94.8 fL (80.0-100.0); MEAN PLATELET VOLUME 13.6 fL (7.4-10.4); MONOCYTES 4.5 % (2-11); NEUTROPHILS 87.1 % (40-80); PLATELET COUNT 66 10x3/uL (130-400); RBC 3.06 10x6/uL (4.20-6.10); RDW 15.9 % (11.5-14.5); WBC 9.6 10x3/uL (4.8-10.8)
[2017-06-20 06:20] LABS: INR 1.05 (0.85-1.17); PROTIME 13.3 SECONDS (11.6-15.0)
[2017-06-20 06:23] LABS: D-DIMER-QUANTITATIVE 0.96 ug/mLFEU (0.20-0.54)
[2017-06-20 06:32] LABS: ALBUMIN 1.8 g/dL (3.4-5.0); ALKALINE PHOSPHATASE 93 U/L (46-116); ALT (SGPT) 37 U/L (10-68); BILIRUBIN - TOTAL 0.48 mg/dL (0.2-1.3); CARBON DIOXIDE 25.6 mmol/L (21.0-32.0); CHLORIDE - SERUM 102 mmol/L (98-107); CREATININE - SERUM 0.8 mg/dL (0.6-1.3); MAGNESIUM - SERUM 1.9 mg/dL (1.8-2.4); PHOSPHOROUS 2.8 mg/dL (2.5-4.9); POTASSIUM - SERUM 4.3 mmol/L (3.5-5.1); PROTEIN - SERUM 3.8 g/dL (6.4-8.2); SODIUM 134 mmol/L (136-145); UREA NITROGEN 30 mg/dL (7-18); eGFR NON AFRICAN AMERICAN > 90 mL/min (90-120)
[2017-06-20 06:42] LABS: CALC OSMOLALITY 283 mosm/kg (275-300); GLUCOSE 286 mg/dL (74-106)
[2017-06-20 06:43] LABS: CALCIUM 6.9 mg/dL (8.5-10.1)
[2017-06-20 08:30] VITALS: BP 102/63
[2017-06-20 11:28] VITALS: BP 98/61
[2017-06-20 15:45] VITALS: BP 107/57
[2017-06-20 19:00] VITALS: BP 103/60
[2017-06-20 19:44] LABS: % SATURATION 8 % (15-55); IRON 14 ug/dl (35-150); TOTAL IRON BIND CAPACITY 170 ug/dl (260-445); UNSAT IRON BIND CAPACITY 156 ug/dl (150-375)
[2017-06-20 19:59] LABS: FERRITIN 988 ng/mL (3-244); LDH 460 U/L (85-227)
[2017-06-21] VITALS: BP 102/55
[2017-06-21 04:00] VITALS: BP 111/57
[2017-06-21 06:40] LABS: BASOPHILS 0 % (0-2); EOSINOPHILS 0 % (0-7); HEMATOCRIT 27.1 % (42.0-54.0); IMMATURE GRANULOCYTES 0.1 % (0-5); MCH 31.1 pg (26.0-34.0); MCHC 33.2 g/dL (31.0-37.0); MCV 93.8 fL (80.0-100.0); MEAN PLATELET VOLUME 12.8 fL (7.4-10.4); MONOCYTES 6.4 % (2-11); NEUTROPHILS 87.5 % (40-80); PLATELET COUNT 64 10x3/uL (130-400); RBC 2.89 10x6/uL (4.20-6.10); RDW 15.7 % (11.5-14.5); WBC 9.3 10x3/uL (4.8-10.8)
[2017-06-21 06:56] LABS: CALCIUM 7.3 mg/dL (8.5-10.1); CARBON DIOXIDE 25.7 mmol/L (21.0-32.0); POTASSIUM - SERUM 4.7 mmol/L (3.5-5.1)
[2017-06-21 06:57] LABS: CREATININE - SERUM 1.1 mg/dL (0.6-1.3)
[2017-06-21 08:21] VITALS: BP 120/64
[2017-06-21 13:51] VITALS: BP 107/63
[2017-06-21 17:01] VITALS: BP 112/61
[2017-06-21 20:00] VITALS: BP 115/59
[2017-06-22] VITALS: BP 103/56
[2017-06-22 04:00] VITALS: BP 98/46
[2017-06-22 06:31] LABS: BASOPHILS 0 % (0-2); EOSINOPHILS 0.2 % (0-7); HEMATOCRIT 25.9 % (42.0-54.0); HEMOGLOBIN 8.8 g/dL (13.5-17.5); IMMATURE GRANULOCYTES 0.2 % (0-5); MCH 31.5 pg (26.0-34.0); MCV 92.8 fL (80.0-100.0); MEAN PLATELET VOLUME 12.4 fL (7.4-10.4); NEUTROPHILS 65.6 % (40-80); PLATELET COUNT 69 10x3/uL (130-400); RBC 2.79 10x6/uL (4.20-6.10); RDW 15.7 % (11.5-14.5)
[2017-06-22 06:34] LABS: WBC 5.3 10x3/uL (4.8-10.8)
[2017-06-22 07:30] LABS: CALC OSMOLALITY 276 mosm/kg (275-300); CALCIUM 7.1 mg/dL (8.5-10.1); CARBON DIOXIDE 28.3 mmol/L (21.0-32.0); CHLORIDE - SERUM 102 mmol/L (98-107); CREATININE - SERUM 0.9 mg/dL (0.6-1.3); POTASSIUM - SERUM 4.6 mmol/L (3.5-5.1); SODIUM 135 mmol/L (136-145); UREA NITROGEN 30 mg/dL (7-18); eGFR NON AFRICAN AMERICAN 84 mL/min (90-120)
[2017-06-22 07:33] LABS: GLUCOSE 109 mg/dL (74-106)
[2017-06-22 08:22] LABS: FOLATE (FOLIC ACID) - SERUM 15.8 ng/mL (>3.0)
[2017-06-22 10:15] VITALS: BP 128/65
[2017-06-22 12:31] VITALS: BP 103/58
[2017-06-22] MEDS ORDERED: BROVANA15 MCG/2 M INH (16:47)
[2017-06-22] MEDS ORDERED: LOVENOX40 MG/0.4 SC (16:48)
[2017-06-22] MEDS ORDERED: IPRAT-ALBUT 0.5-3 ML UPD (16:48)
[2017-06-22] MEDS ORDERED: LOPRESSOR I5 MG/5 ML IV (16:49)
[2017-06-22] MEDS ORDERED: ACETAMINOPHEN500 M1 PO (16:50)
[2017-06-22] MEDS ORDERED: PULMICORT0.5 MG/21 INH (16:50)
[2017-06-22] MEDS ORDERED: ZOFRAN4 MG PO (16:51)
[2017-06-22] MEDS ORDERED: BENADRYL25 MG PEG (16:52)
[2017-06-22] MEDS ORDERED: PREDNISONE20 MG PEG (16:57)
[2017-06-22 18:21] VITALS: BP 123/64
[2017-06-22 19:00] VITALS: BP 109/86
[2017-06-23 04:00] VITALS: BP 131/60
[2017-06-23 06:10] LABS: HEMATOCRIT 25.4 % (42.0-54.0); HEMOGLOBIN 8.6 g/dL (13.5-17.5); MCH 31.6 pg (26.0-34.0); MCHC 33.9 g/dL (31.0-37.0); MCV 93.4 fL (80.0-100.0); MEAN PLATELET VOLUME 12.3 fL (7.4-10.4); PLATELET COUNT 67 10x3/uL (130-400); RBC 2.72 10x6/uL (4.20-6.10); RDW 16.1 % (11.5-14.5)
[2017-06-23 06:16] LABS: WBC 2.6 10x3/uL (4.8-10.8)
[2017-06-23 06:32] LABS: ALBUMIN 1.7 g/dL (3.4-5.0); ALKALINE PHOSPHATASE 96 U/L (46-116); ALT (SGPT) 33 U/L (10-68); CALC OSMOLALITY 274 mosm/kg (275-300); CALCIUM 7.5 mg/dL (8.5-10.1); CARBON DIOXIDE 28.7 mmol/L (21.0-32.0); CHLORIDE - SERUM 100 mmol/L (98-107); GLUCOSE 111 mg/dL (74-106); POTASSIUM - SERUM 4.7 mmol/L (3.5-5.1); PROTEIN - SERUM 4.1 g/dL (6.4-8.2); SODIUM 133 mmol/L (136-145); UREA NITROGEN 35 mg/dL (7-18); eGFR NON AFRICAN AMERICAN 75 mL/min (90-120)
[2017-06-23 07:00] VITALS: BP 122/61
[2017-06-23 07:54] LABS: LYMPHOCYTES 39 % (15-50); MONOCYTES 1 % (2-11); NEUTROPHILS 44 % (40-80)
[2017-06-23 07:55] LABS: ANISOCYTOSIS OCC; HYPOCHROMASIA OCC; PLATELET ESTIMATE DECREASED; ROULEAUX OCC
[2017-06-23 13:38] VITALS: BP 106/55
[2017-06-23 15:27] LABS: PLT AB - HLA CLASS 1 Negative (Negative); PLT AB - IIb IIIa Negative (Negative); PLT AB - Ia IIa Negative (Negative); PLT AB - Ib IX Negative (Negative)
[2017-06-23 17:12] VITALS: BP 132/69
[2017-06-23 20:00] VITALS: BP 95/48
[2017-06-24] VITALS: BP 101/50
[2017-06-24 04:30] VITALS: BP 95/48
[2017-06-24 04:38] LABS: BASOPHILS 0 % (0-2); EOSINOPHILS 1.2 % (0-7); HEMATOCRIT 21.7 % (42.0-54.0); LYMPHOCYTES 32.3 % (15-50); MCH 31.3 pg (26.0-34.0); MCHC 33.6 g/dL (31.0-37.0); MCV 93.1 fL (80.0-100.0); MEAN PLATELET VOLUME 11.8 fL (7.4-10.4); MONOCYTES 11.6 % (2-11); NEUTROPHILS 54.9 % (40-80); PLATELET COUNT 62 10x3/uL (130-400); RBC 2.33 10x6/uL (4.20-6.10); RDW 16.2 % (11.5-14.5); WBC 2.5 10x3/uL (4.8-10.8)
[2017-06-24 04:54] LABS: HEMOGLOBIN 7.3 g/dL (13.5-17.5)
[2017-06-24 04:58] LABS: CALC OSMOLALITY 273 mosm/kg (275-300); CALCIUM 7.4 mg/dL (8.5-10.1); CARBON DIOXIDE 29.6 mmol/L (21.0-32.0); CHLORIDE - SERUM 100 mmol/L (98-107); GLUCOSE 118 mg/dL (74-106); POTASSIUM - SERUM 4.5 mmol/L (3.5-5.1); SODIUM 132 mmol/L (136-145); UREA NITROGEN 34 mg/dL (7-18); eGFR NON AFRICAN AMERICAN 75 mL/min (90-120)
[2017-06-24 11:37] VITALS: BP 129/56
[2017-06-24 14:25] VITALS: BP 105/55
[2017-06-24 19:00] VITALS: BP 132/67
[2017-06-25] VITALS: BP 114/55
[2017-06-25 04:00] VITALS: BP 116/65
[2017-06-25 06:35] LABS: BASOPHILS 0 % (0-2); EOSINOPHILS 0.3 % (0-7); HEMOGLOBIN 9.5 g/dL (13.5-17.5); MCH 31.8 pg (26.0-34.0); MCHC 34.7 g/dL (31.0-37.0); MCV 91.6 fL (80.0-100.0); MEAN PLATELET VOLUME 12.5 fL (7.4-10.4); MONOCYTES 12.3 % (2-11); NEUTROPHILS 63.4 % (40-80); PLATELET COUNT 66 10x3/uL (130-400); RBC 2.99 10x6/uL (4.20-6.10); RDW 16.2 % (11.5-14.5); WBC 3.3 10x3/uL (4.8-10.8)
[2017-06-25 06:36] LABS: HEMATOCRIT 27.4 % (42.0-54.0)
[2017-06-25 06:46] LABS: CALC OSMOLALITY 270 mosm/kg (275-300); CALCIUM 7.5 mg/dL (8.5-10.1); CARBON DIOXIDE 25.1 mmol/L (21.0-32.0); CHLORIDE - SERUM 99 mmol/L (98-107); GLUCOSE 111 mg/dL (74-106); POTASSIUM - SERUM 4.1 mmol/L (3.5-5.1); SODIUM 131 mmol/L (136-145); UREA NITROGEN 32 mg/dL (7-18); eGFR NON AFRICAN AMERICAN 75 mL/min (90-120)
[2017-06-25 08:52] VITALS: BP 128/67
[2017-06-25 11:35] VITALS: BP 128/77
[2017-06-25 16:21] VITALS: BP 120/63
[2017-06-25 20:59] VITALS: BP 123/67
[2017-06-26 02:21] VITALS: BP 119/61
[2017-06-26 05:50] LABS: BASOPHILS 0.2 % (0-2); EOSINOPHILS 0.5 % (0-7); HEMATOCRIT 30.3 % (42.0-54.0); HEMOGLOBIN 10.4 g/dL (13.5-17.5); IMMATURE GRANULOCYTES 0.2 % (0-5); LYMPHOCYTES 28.3 % (15-50); MCH 31.3 pg (26.0-34.0); MCHC 34.3 g/dL (31.0-37.0); MCV 91.3 fL (80.0-100.0); MEAN PLATELET VOLUME 11.5 fL (7.4-10.4); MONOCYTES 14.6 % (2-11); NEUTROPHILS 56.2 % (40-80); PLATELET COUNT 72 10x3/uL (130-400); RBC 3.32 10x6/uL (4.20-6.10); RDW 16.1 % (11.5-14.5)
[2017-06-26 06:03] LABS: CALC OSMOLALITY 272 mosm/kg (275-300); CALCIUM 7.5 mg/dL (8.5-10.1); CARBON DIOXIDE 27.9 mmol/L (21.0-32.0); CHLORIDE - SERUM 99 mmol/L (98-107); CREATININE - SERUM 0.9 mg/dL (0.6-1.3); GLUCOSE 121 mg/dL (74-106); POTASSIUM - SERUM 4.1 mmol/L (3.5-5.1); SODIUM 132 mmol/L (136-145); UREA NITROGEN 31 mg/dL (7-18); eGFR NON AFRICAN AMERICAN 84 mL/min (90-120)
[2017-06-26 06:13] VITALS: BP 139/71
[2017-06-26 08:15] VITALS: BP 135/67
[2017-06-26 11:53] VITALS: BP 136/71
[2017-06-26 15:46] VITALS: BP 133/83
[2017-06-26 21:22] VITALS: BP 119/66
[2017-06-27 01:10] VITALS: BP 139/58
[2017-06-27 05:09] VITALS: BP 121/61
[2017-06-27 09:42] VITALS: BP 125/69
[2017-06-27 12:39] VITALS: BP 115/72
[2017-06-27 16:41] VITALS: BP 120/70
[2017-06-27 21:23] VITALS: BP 106/69
[2017-06-28 02:34] VITALS: BP 123/65
[2017-06-28 05:28] VITALS: BP 107/66
[2017-06-28] MEDS ORDERED: NYSTATIN ORAL SU5 ML PO (08:16)
[2017-06-28] MEDS ORDERED: DIFLUCAN100 MG PEG (08:16)
[2017-06-28] MEDS ORDERED: XOPENEX 0.0.63 MG/3 UPD (08:17)
[2017-06-28] MEDS ORDERED: MIRALAX17 GM PO (08:18)
[2017-06-28] MEDS ORDERED: PROTONIX FOR OR40 MG PO (08:18)
[2017-06-28] MEDS ORDERED: FLORANEX / LACT1 TAB PO (08:18)
[2017-06-28 08:35] VITALS: BP 128/68
== END 2017-06-28 11:39 | DRG 871 ==
LOC: D.ER 18:40 → D.M2 23:01 → D.ICU 23:01 → D.EDHOLD 23:01 → D.ICU 23:15 → D.MS 06-07 15:22 → D.M2 06-08 05:23 → D.ICU 06-08 20:35 → D.M2 06-18 14:52
PROVIDERS: Family Medicine; Internal Medicine Pulmonary Disease; Legal Medicine; Surgery
PROC: 0T9B70Z Drainage of Bladder with Drainage Device, Via Natural or Artificial Opening (ICD-10-PCS; 2017-06-07)
PROC: 02HV33Z Insertion of Infusion Device into Superior Vena Cava, Percutaneous Approach (ICD-10-PCS; principal; 2017-06-13)
PROC: 0DB78ZX Excision of Stomach, Pylorus, Via Natural or Artificial Opening Endoscopic, Diagnostic (ICD-10-PCS; 2017-06-16)
PROC: 0DH63UZ Insertion of Feeding Device into Stomach, Percutaneous Approach (ICD-10-PCS; 2017-06-16 10:00)
DX: A41.9 Sepsis, unspecified organism (principal); I26.99 Other pulmonary embolism without acute cor pulmonale; J69.0 Pneumonitis due to inhalation of food and vomit; J96.01 Acute respiratory failure with hypoxia; I50.21 Acute systolic (congestive) heart failure; R65.21 Severe sepsis with septic shock; R57.0 Cardiogenic shock; G93.41 Metabolic encephalopathy; F05 Delirium due to known physiological condition; G91.2 (Idiopathic) normal pressure hydrocephalus; N39.0 Urinary tract infection, site not specified; I24.8 Other forms of acute ischemic heart disease; L51.1 Stevens-Johnson syndrome; I13.0 Hypertensive heart and chronic kidney disease with heart failure and stage 1 through stage 4 chronic kidney disease, or unspecified chronic kidney disease; E87.0 Hyperosmolality and hypernatremia; Z66 Do not resuscitate; T38.0X5A Adverse effect of glucocorticoids and synthetic analogues, initial encounter; I48.91 Unspecified atrial fibrillation; F03.90 Unspecified dementia, unspecified severity, without behavioral disturbance, psychotic disturbance, mood disturbance, and anxiety; I95.9 Hypotension, unspecified; I49.5 Sick sinus syndrome; Z95.0 Presence of cardiac pacemaker; D50.9 Iron deficiency anemia, unspecified; K21.9 Gastro-esophageal reflux disease without esophagitis; R79.89 Other specified abnormal findings of blood chemistry; R79.1 Abnormal coagulation profile; Y95 Nosocomial condition; N40.0 Benign prostatic hyperplasia without lower urinary tract symptoms; K58.9 Irritable bowel syndrome, unspecified; M19.90 Unspecified osteoarthritis, unspecified site; E88.09 Other disorders of plasma-protein metabolism, not elsewhere classified; I08.1 Rheumatic disorders of both mitral and tricuspid valves; I27.20 Pulmonary hypertension, unspecified; N18.9 Chronic kidney disease, unspecified

== ENCOUNTER 2017-06-27 12:38 | Inpatient (IN) | payer MEDICARE ==
[~2017-06-27] VITALS: Ht 172.7 cm; Wt 63.0 kg
--- NOTE | ~2017-06-27 | RHP ---
PATIENT: SALINA BLAIR MEDICAL RECORD: [id number] ACCOUNT: [id number] LOCATION:[facility]1117 : [birth year] ADMISSION DATE: 06/28/17 REHABILITATION HISTORY AND PHYSICAL EXAMINATION POST ADMISSION PHYSICIAN EXAMINATION DATE OF ADMISSION TO THE REHAB: 06/28/2017. ADMITTING DIAGNOSIS: Disuse myopathy. HISTORY OF PRESENT ILLNESS: The patient admitted to the inpatient rehab for disuse myopathy. He is an 89-year-old gentleman who has a history of sick sinus syndrome and normal pressure hydrocephalus. He was treated the week prior to hospital admit by his urologist for BPH and UTI. He was placed on Bactrim. Within several days, he developed a diffuse pruritic rash on his abdomen extending to his legs. He actually had a history of a SULFA allergy. He became worse. He was feeling more fatigued and lightheaded. He was hypotensive when he got to the Emergency Room and was considered possibly with septic influenza. Test was obtained that was negative, but was reported Staph to be positive. He was admitted to the ICU. He was there from 06/06/2017 to 06/18/2017, being transferred out to the medical floor. He has got an extended hospital stay with multiple medical complications, sepsis, aspiration pneumonia, oropharyngeal dysphagia, status post PEG placement, AFib with rapid ventricular response, sick sinus syndrome, and cardiogenic shock status post cardioversion. He had noted proximal muscle weakness, difficulty rising from bed to chair, and only able to ambulate 4 feet with assistance. He is moderate assist to total assist with ADLs and mobility. He is currently on 2 liters nasal cannula. He is not on any home O2. He has a new PEG placed and was on continuous feedings due to severe thrush in his mouth and throat. He was living at home with his . He is independent with ADLs and moderately independent with mobility with a single point cane or rolling walker when ambulating outside the home. He and his family plan for him to return home at his prior level of functioning or better if possible. 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 PAST MEDICAL HISTORY: Significant for sick sinus syndrome, mild dementia, BPH, irritable bowel syndrome, iron deficient anemia, lymphocytosis, gastroesophageal reflux disease, osteoarthritis, essential hypertension, chronic back pain, anemia, seizure disorder, arthritis, and anxiety. PAST SURGICAL HISTORY: Includes pacemaker placement, hemorrhoidectomy. He has had a GROUNDSMAN shunt placed, cataract surgery, and bladder stone removal. ALLERGIES: PENICILLIN and SULFA. CURRENT MEDICATIONS: Include prednisone he is on 10 mg daily per PEG. He is on polyethylene glycol 17 grams in 8 ounces of water daily, Paxil 10 mg daily, HISTORY AND PHYSICAL [id number] SALINA BLAIR Protonix 40 mg daily. He is on multivitamin daily. He is on Meloxicam 7.5 mg daily, lactobacillus 1 tab daily per PEG. He is on chondroitin sulfate daily. He is on Diflucan 100 mg daily, finasteride 5 mg daily per PEG, Feosol elixir per PEG. He is on Lovenox 40 mg subq daily, vitamin D 1000 units daily, Os-Walter 500 mg daily, ascorbic acid 500 mg daily, Zofran 4 mg q.4 hours p.r.n., nystatin suspension 5 cc q.i.d., Lopressor as needed for elevated heart rate greater than 110. He is on Keppra 250 mg b.i.d., Xopenex updrafts as needed, DuoNeb updrafts as needed, Pepcid 20 mg b.i.d., Benadryl 25 mg q.8 hours p.r.n., Pulmicort 0.5 mg b.i.d., Brovana 15 mcg b.i.d., Tylenol 500 mg q.4 hours p.r.n. HABITS: No alcohol or tobacco use. FAMILY HISTORY: Noncontributory. SOCIAL HISTORY: The patient hopes to return back to his prior level of functioning with his . REVIEW OF SYSTEMS: Generally hard to obtain secondary to his current situation. PHYSICAL EXAMINATION: VITAL SIGNS: Stable. He is afebrile. GENERAL: A thin gentleman in no acute distress. HEENT: Normocephalic and atraumatic. Mucosa moist. NECK: Supple. No lymphadenopathy. LUNGS: Clear at this time. HEART: Has a regular rate and rhythm. ABDOMEN: Benign. He does have PEG in place. EXTREMITIES: No clubbing, cyanosis, or edema. NEUROLOGIC: He is very slow to mentate. LABORATORY DATA: White count is 5.6, H&H of 10 and 29, and platelet count was 119. Sodium 133, potassium 4.5, BUN and creatinine of 28 and 0.9, and blood sugar is noted to be 84. ASSESSMENT: This is an 89-year-old gentleman admitted to the rehab with a working diagnosis of disuse myopathy. The patient has potential to make improvement. We instituted the following multidisciplinary therapies including not limited to physical, occupational, respiratory, speech, nutritional services, prosthetics and orthotics. Given his complex medical condition and risk for more complications, rehabilitation services cannot be provided at a low level of care such as a retirement facility. PLAN: 1. Admit to [facility] for intensive inpatient therapy to include the following disciplines: A. Physical therapy to improve gait, all transfer skills and bed mobility to a modified independent level. B. Occupational therapy to improve activities of daily living to a modified independent level. C. Case management to assist with discharge planning and placement options. D. Nutrition to assist with nutritional needs. E. Rehabilitation nursing to assist with monitoring the patient's underlying medical conditions and to assist with any type of bowel or bladder management. 2. The patient's current medical care and medication will be continued. 3. The patient will be placed on standard fall precautions. HISTORY AND PHYSICAL [id number] SALINA BLAIR 4. The patient's estimated length of stay is approximately 10-14 days. 5. We will discuss the patient during the care team staff meeting this week. TRANSINT:[id number] Voice Confirmation ID: [id number] DOCUMENT ID: [id number] JOSE DANIEL notes whether there has been none or any medical/functional change since admission: - No change since preadmission screen. JOSE DANIEL attests patient continues to be appropriate for IRF: - Continues to be appropriate. FELISHA BROCK MD at 1411 CC: [id number] DICTATION DATE: 06/29/17 1258 OYSTERMAN: 06/29/17 1343 ADM IN [facility] [address] [place] [address]
[~2017-06-27 12:38] MED LIST changes: +ACETAMINOPHEN500 M1 PO; +ASCORBIC ACID500 MG PO; +BAYER CHEWABLE81 MG PO; +BENADRYL25 MG PEG; +BROVANA15 MCG/2 M INH; +CALCIUM 600 +1 EAC3 PO; +FERROUS SULFAT325 MG PO; +GLUCOSAMINE & C1 CAP PO; +IPRAT-ALBUT 0.5-3 ML UPD; +KEPPRA250 MG PO; +LOPRESSOR I5 MG/5 ML IV; +LOVENOX40 MG/0.4 SC; +MULTI-DAY VITAM1 TAB PO; +PEPCID20 MG PO; +PREDNISONE20 MG PEG; +PRILOSEC10 M1 PO; +PROSCAR5 MG PO; +PROZAC10 MG PO; +PULMICORT0.5 MG/21 INH; +VITAMIN D31000 UNIT PO; +ZOFRAN4 MG PO
[2017-06-28] MEDS ORDERED: NYSTATIN ORAL SU5 ML PO (08:16)
[2017-06-28] MEDS ORDERED: DIFLUCAN100 MG PEG (08:16)
[2017-06-28] MEDS ORDERED: XOPENEX 0.0.63 MG/3 UPD (08:17)
[2017-06-28] MEDS ORDERED: MIRALAX17 GM PO (08:18)
[2017-06-28] MEDS ORDERED: FLORANEX / LACT1 TAB PO (08:18)
[2017-06-28] MEDS ORDERED: PROTONIX FOR OR40 MG PO (08:18)
[2017-06-28 13:59] VITALS: BP 105/69; BMI 21.1
[2017-06-28 19:48] VITALS: BP 119/59
[2017-06-29 06:48] LABS: BASOPHILS 0.2 % (0-2); EOSINOPHILS 0 % (0-7); HEMATOCRIT 29.4 % (42.0-54.0); HEMOGLOBIN 9.9 g/dL (13.5-17.5); IMMATURE GRANULOCYTES 0.7 % (0-5); LYMPHOCYTES 28.6 % (15-50); MCH 31.6 pg (26.0-34.0); MCHC 33.7 g/dL (31.0-37.0); MCV 93.9 fL (80.0-100.0); MEAN PLATELET VOLUME 12.3 fL (7.4-10.4); MONOCYTES 17.1 % (2-11); NEUTROPHILS 53.4 % (40-80); RBC 3.13 10x6/uL (4.20-6.10); RDW 15.9 % (11.5-14.5); WBC 5.6 10x3/uL (4.8-10.8)
[2017-06-29 06:54] LABS: PLATELET COUNT 119 10x3/uL (130-400)
[2017-06-29 07:34] LABS: CALC OSMOLALITY 270 mosm/kg (275-300); CALCIUM 7.3 mg/dL (8.5-10.1); CARBON DIOXIDE 29.9 mmol/L (21.0-32.0); CHLORIDE - SERUM 96 mmol/L (98-107); CREATININE - SERUM 0.9 mg/dL (0.6-1.3); GLUCOSE 84 mg/dL (74-106); POTASSIUM - SERUM 4.5 mmol/L (3.5-5.1); SODIUM 133 mmol/L (136-145); UREA NITROGEN 28 mg/dL (7-18); eGFR NON AFRICAN AMERICAN 84 mL/min (90-120)
[2017-06-29 08:00] VITALS: BP 113/61
[2017-06-29 10:24] VITALS: Ht 172.7 cm; Wt 63.0 kg
[2017-06-29 20:06] VITALS: BP 103/63
[2017-06-30 06:56] LABS: BASOPHILS 0.2 % (0-2); EOSINOPHILS 0 % (0-7); HEMATOCRIT 25.6 % (42.0-54.0); HEMOGLOBIN 8.7 g/dL (13.5-17.5); IMMATURE GRANULOCYTES 0.6 % (0-5); LYMPHOCYTES 35.4 % (15-50); MCH 31.6 pg (26.0-34.0); MCV 93.1 fL (80.0-100.0); MEAN PLATELET VOLUME 11.8 fL (7.4-10.4); MONOCYTES 16.4 % (2-11); NEUTROPHILS 47.4 % (40-80); RBC 2.75 10x6/uL (4.20-6.10); RDW 15.9 % (11.5-14.5); WBC 5.2 10x3/uL (4.8-10.8)
[2017-06-30 06:58] LABS: PLATELET COUNT 152 10x3/uL (130-400)
[2017-06-30 08:00] VITALS: BP 90/59
[2017-06-30 20:05] VITALS: BP 96/53
[2017-07-01 06:12] LABS: BASOPHILS 0.2 % (0-2); EOSINOPHILS 0 % (0-7); HEMATOCRIT 26.1 % (42.0-54.0); HEMOGLOBIN 8.8 g/dL (13.5-17.5); IMMATURE GRANULOCYTES 0.4 % (0-5); LYMPHOCYTES 32.1 % (15-50); MCH 31.4 pg (26.0-34.0); MCHC 33.7 g/dL (31.0-37.0); MCV 93.2 fL (80.0-100.0); MEAN PLATELET VOLUME 11.6 fL (7.4-10.4); MONOCYTES 17.7 % (2-11); NEUTROPHILS 49.6 % (40-80); PLATELET COUNT 184 10x3/uL (130-400); RDW 15.8 % (11.5-14.5); WBC 5.3 10x3/uL (4.8-10.8)
[2017-07-01 06:28] LABS: CALC OSMOLALITY 271 mosm/kg (275-300); CALCIUM 7.1 mg/dL (8.5-10.1); CARBON DIOXIDE 29.4 mmol/L (21.0-32.0); CHLORIDE - SERUM 98 mmol/L (98-107); CREATININE - SERUM 0.8 mg/dL (0.6-1.3); GLUCOSE 117 mg/dL (74-106); POTASSIUM - SERUM 4.7 mmol/L (3.5-5.1); SODIUM 132 mmol/L (136-145); UREA NITROGEN 28 mg/dL (7-18); eGFR NON AFRICAN AMERICAN > 90 mL/min (90-120)
[2017-07-01 08:00] VITALS: BP 116/65
[2017-07-01 19:00] VITALS: BP 145/77
[2017-07-01 19:25] VITALS: BP 130/78
[2017-07-01 19:40] VITALS: BP 140/73
[2017-07-01 22:37] VITALS: BP 136/71
[2017-07-02 06:13] LABS: BASOPHILS 0.2 % (0-2); EOSINOPHILS 0 % (0-7); HEMATOCRIT 34.2 % (42.0-54.0); HEMOGLOBIN 11.8 g/dL (13.5-17.5); IMMATURE GRANULOCYTES 0.5 % (0-5); LYMPHOCYTES 32.2 % (15-50); MCH 30.6 pg (26.0-34.0); MCHC 34.5 g/dL (31.0-37.0); MCV 88.8 fL (80.0-100.0); MEAN PLATELET VOLUME 11.3 fL (7.4-10.4); MONOCYTES 18.6 % (2-11); NEUTROPHILS 48.5 % (40-80); PLATELET COUNT 193 10x3/uL (130-400); RBC 3.85 10x6/uL (4.20-6.10); RDW 17.7 % (11.5-14.5); WBC 6.3 10x3/uL (4.8-10.8)
[2017-07-02 09:27] VITALS: BP 118/65
[2017-07-02 20:24] VITALS: BP 135/77
[2017-07-03 06:15] LABS: BASOPHILS 0.3 % (0-2); EOSINOPHILS 0 % (0-7); HEMATOCRIT 35.2 % (42.0-54.0); HEMOGLOBIN 11.8 g/dL (13.5-17.5); IMMATURE GRANULOCYTES 0.8 % (0-5); LYMPHOCYTES 28.4 % (15-50); MCH 30.2 pg (26.0-34.0); MCHC 33.5 g/dL (31.0-37.0); MEAN PLATELET VOLUME 11.1 fL (7.4-10.4); MONOCYTES 24.3 % (2-11); NEUTROPHILS 46.2 % (40-80); PLATELET COUNT 191 10x3/uL (130-400); RBC 3.91 10x6/uL (4.20-6.10); RDW 16.8 % (11.5-14.5); WBC 6.1 10x3/uL (4.8-10.8)
[2017-07-03 08:56] VITALS: BP 125/64
[2017-07-03 19:43] VITALS: BP 120/66
[2017-07-04 05:59] LABS: BASOPHILS 0.2 % (0-2); EOSINOPHILS 0 % (0-7); HEMOGLOBIN 11.5 g/dL (13.5-17.5); IMMATURE GRANULOCYTES 1.2 % (0-5); LYMPHOCYTES 28.7 % (15-50); MCH 30.2 pg (26.0-34.0); MCHC 33.8 g/dL (31.0-37.0); MCV 89.2 fL (80.0-100.0); MEAN PLATELET VOLUME 10.9 fL (7.4-10.4); MONOCYTES 18.7 % (2-11); NEUTROPHILS 51.2 % (40-80); PLATELET COUNT 213 10x3/uL (130-400); RBC 3.81 10x6/uL (4.20-6.10); RDW 16.7 % (11.5-14.5); WBC 6.5 10x3/uL (4.8-10.8)
[2017-07-04 06:08] LABS: CALC OSMOLALITY 264 mosm/kg (275-300); CALCIUM 7.4 mg/dL (8.5-10.1); CARBON DIOXIDE 27.8 mmol/L (21.0-32.0); CHLORIDE - SERUM 96 mmol/L (98-107); CREATININE - SERUM 0.9 mg/dL (0.6-1.3); GLUCOSE 120 mg/dL (74-106); POTASSIUM - SERUM 4.7 mmol/L (3.5-5.1); SODIUM 129 mmol/L (136-145); UREA NITROGEN 26 mg/dL (7-18); eGFR NON AFRICAN AMERICAN 84 mL/min (90-120)
[2017-07-04 08:00] VITALS: BP 135/76
[2017-07-04 20:51] VITALS: BP 108/66
[2017-07-05 07:33] LABS: BASOPHILS 0.1 % (0-2); EOSINOPHILS 0 % (0-7); HEMATOCRIT 34.8 % (42.0-54.0); HEMOGLOBIN 11.7 g/dL (13.5-17.5); IMMATURE GRANULOCYTES 1.1 % (0-5); LYMPHOCYTES 28.4 % (15-50); MCH 30.6 pg (26.0-34.0); MCHC 33.6 g/dL (31.0-37.0); MCV 91.1 fL (80.0-100.0); MEAN PLATELET VOLUME 11.4 fL (7.4-10.4); MONOCYTES 22.4 % (2-11); PLATELET COUNT 223 10x3/uL (130-400); RBC 3.82 10x6/uL (4.20-6.10); RDW 16.3 % (11.5-14.5)
[2017-07-05 07:59] VITALS: BP 103/52
[2017-07-05 19:23] VITALS: BP 106/52
[2017-07-06 07:18] LABS: HEMATOCRIT 31.8 % (42.0-54.0); HEMOGLOBIN 10.6 g/dL (13.5-17.5); MCH 29.8 pg (26.0-34.0); MCHC 33.3 g/dL (31.0-37.0); MCV 89.3 fL (80.0-100.0); PLATELET COUNT 223 10x3/uL (130-400); RBC 3.56 10x6/uL (4.20-6.10); RDW 16.2 % (11.5-14.5); WBC 6.5 10x3/uL (4.8-10.8)
[2017-07-06 07:41] LABS: CALC OSMOLALITY 260 mosm/kg (275-300); CALCIUM 7.3 mg/dL (8.5-10.1); CARBON DIOXIDE 27.2 mmol/L (21.0-32.0); CHLORIDE - SERUM 95 mmol/L (98-107); GLUCOSE 107 mg/dL (74-106); POTASSIUM - SERUM 4.9 mmol/L (3.5-5.1); SODIUM 127 mmol/L (136-145); UREA NITROGEN 30 mg/dL (7-18); eGFR NON AFRICAN AMERICAN 75 mL/min (90-120)
[2017-07-06 08:07] LABS: EOSINOPHILS 1 % (0-7); LYMPHOCYTES 30 % (15-50); MONOCYTES 23 % (2-11); NEUTROPHILS 31 % (40-80); PLATELET ESTIMATE NORMAL; SMUDGE CELLS OCC
[2017-07-06 08:08] LABS: ANISOCYTOSIS OCC
[2017-07-06 08:28] VITALS: BP 117/59
[2017-07-06 20:05] VITALS: BP 114/57
[2017-07-07 06:53] LABS: BASOPHILS 0.4 % (0-2); EOSINOPHILS 0 % (0-7); HEMATOCRIT 32.7 % (42.0-54.0); IMMATURE GRANULOCYTES 1.5 % (0-5); LYMPHOCYTES 25.7 % (15-50); MCH 30.1 pg (26.0-34.0); MCHC 33.6 g/dL (31.0-37.0); MCV 89.6 fL (80.0-100.0); MEAN PLATELET VOLUME 11.3 fL (7.4-10.4); MONOCYTES 25.1 % (2-11); NEUTROPHILS 47.3 % (40-80); PLATELET COUNT 249 10x3/uL (130-400); RBC 3.65 10x6/uL (4.20-6.10); RDW 16.3 % (11.5-14.5); WBC 7.2 10x3/uL (4.8-10.8)
[2017-07-07 08:00] VITALS: BP 114/65
[2017-07-07 20:00] VITALS: BP 96/55
[2017-07-08 07:25] LABS: BASOPHILS 0.4 % (0-2); EOSINOPHILS 0 % (0-7); HEMATOCRIT 33.4 % (42.0-54.0); HEMOGLOBIN 11.2 g/dL (13.5-17.5); IMMATURE GRANULOCYTES 1.2 % (0-5); LYMPHOCYTES 30.7 % (15-50); MCH 29.9 pg (26.0-34.0); MCHC 33.5 g/dL (31.0-37.0); MCV 89.1 fL (80.0-100.0); MONOCYTES 26.3 % (2-11); NEUTROPHILS 41.4 % (40-80); PLATELET COUNT 241 10x3/uL (130-400); RBC 3.75 10x6/uL (4.20-6.10); RDW 16.3 % (11.5-14.5); WBC 8.2 10x3/uL (4.8-10.8)
[2017-07-08 07:37] LABS: CALC OSMOLALITY 263 mosm/kg (275-300); CALCIUM 7.7 mg/dL (8.5-10.1); CARBON DIOXIDE 28.3 mmol/L (21.0-32.0); CHLORIDE - SERUM 96 mmol/L (98-107); GLUCOSE 89 mg/dL (74-106); POTASSIUM - SERUM 4.3 mmol/L (3.5-5.1); SODIUM 130 mmol/L (136-145); UREA NITROGEN 25 mg/dL (7-18); eGFR NON AFRICAN AMERICAN 75 mL/min (90-120)
[2017-07-08 08:25] VITALS: BP 109/61
[2017-07-08 20:49] VITALS: BP 109/62
[2017-07-09 08:00] VITALS: BP 101/50
[2017-07-09 19:30] VITALS: BP 114/61
[2017-07-10 08:02] VITALS: BP 111/66
[2017-07-10 21:01] VITALS: BP 109/55
[2017-07-11 06:11] LABS: BASOPHILS 0.2 % (0-2); EOSINOPHILS 0 % (0-7); HEMATOCRIT 29.1 % (42.0-54.0); HEMOGLOBIN 9.9 g/dL (13.5-17.5); IMMATURE GRANULOCYTES 2.3 % (0-5); LYMPHOCYTES 33.6 % (15-50); MCH 30.1 pg (26.0-34.0); MCV 88.4 fL (80.0-100.0); MEAN PLATELET VOLUME 10.6 fL (7.4-10.4); MONOCYTES 24.5 % (2-11); NEUTROPHILS 39.4 % (40-80); PLATELET COUNT 272 10x3/uL (130-400); RBC 3.29 10x6/uL (4.20-6.10); RDW 16.5 % (11.5-14.5); WBC 9.6 10x3/uL (4.8-10.8)
[2017-07-11 06:28] LABS: CALC OSMOLALITY 269 mosm/kg (275-300); CALCIUM 7.7 mg/dL (8.5-10.1); CARBON DIOXIDE 25.2 mmol/L (21.0-32.0); CHLORIDE - SERUM 99 mmol/L (98-107); GLUCOSE 93 mg/dL (74-106); SODIUM 133 mmol/L (136-145); UREA NITROGEN 25 mg/dL (7-18); eGFR NON AFRICAN AMERICAN 75 mL/min (90-120)
[2017-07-11 08:14] VITALS: BP 129/72
[2017-07-11 21:08] VITALS: BP 105/52
[2017-07-12 08:00] VITALS: BP 121/83
[2017-07-12 19:37] VITALS: BP 125/90
[2017-07-13 06:02] LABS: BASOPHILS 0.3 % (0-2); EOSINOPHILS 0 % (0-7); HEMATOCRIT 28.9 % (42.0-54.0); HEMOGLOBIN 9.7 g/dL (13.5-17.5); IMMATURE GRANULOCYTES 3.2 % (0-5); LYMPHOCYTES 36.6 % (15-50); MCH 29.8 pg (26.0-34.0); MCHC 33.6 g/dL (31.0-37.0); MCV 88.7 fL (80.0-100.0); MEAN PLATELET VOLUME 10.6 fL (7.4-10.4); MONOCYTES 28.3 % (2-11); NEUTROPHILS 31.6 % (40-80); PLATELET COUNT 314 10x3/uL (130-400); RBC 3.26 10x6/uL (4.20-6.10); RDW 16.4 % (11.5-14.5); WBC 8.9 10x3/uL (4.8-10.8)
[2017-07-13 06:44] LABS: CALC OSMOLALITY 270 mosm/kg (275-300); CALCIUM 7.9 mg/dL (8.5-10.1); CARBON DIOXIDE 25.1 mmol/L (21.0-32.0); CHLORIDE - SERUM 100 mmol/L (98-107); GLUCOSE 85 mg/dL (74-106); POTASSIUM - SERUM 3.8 mmol/L (3.5-5.1); SODIUM 134 mmol/L (136-145); UREA NITROGEN 25 mg/dL (7-18); eGFR NON AFRICAN AMERICAN 75 mL/min (90-120)
[2017-07-13 08:00] VITALS: BP 110/62
[2017-07-13 19:54] VITALS: BP 104/54
[2017-07-14 08:00] VITALS: BP 104/56
== END 2017-07-14 16:00 | disposition home health service (06) | DRG 91 ==
LOC: D.REHAB 12:38 → UNDOADMIN 15:01 → D.REHAB 15:01
PROVIDERS: Emergency Medicine
DX: G72.89 Other specified myopathies (principal); J96.91 Respiratory failure, unspecified with hypoxia; J69.0 Pneumonitis due to inhalation of food and vomit; G93.41 Metabolic encephalopathy; I26.99 Other pulmonary embolism without acute cor pulmonale; I50.21 Acute systolic (congestive) heart failure; J96.01 Acute respiratory failure with hypoxia; G91.2 (Idiopathic) normal pressure hydrocephalus; E87.0 Hyperosmolality and hypernatremia; R65.10 Systemic inflammatory response syndrome (SIRS) of non-infectious origin without acute organ dysfunction; I48.91 Unspecified atrial fibrillation; N40.0 Benign prostatic hyperplasia without lower urinary tract symptoms; I49.5 Sick sinus syndrome; D72.829 Elevated white blood cell count, unspecified; F03.90 Unspecified dementia, unspecified severity, without behavioral disturbance, psychotic disturbance, mood disturbance, and anxiety; N18.9 Chronic kidney disease, unspecified; D64.9 Anemia, unspecified; R53.81 Other malaise; R47.1 Dysarthria and anarthria; R13.12 Dysphagia, oropharyngeal phase